=== PATIENT | male | born 1960 | race African-American/Black ===

== ENCOUNTER 2018-04-07 19:16 | Observation (INO) | payer OTHER ==
--- NOTE | 2018-04-07 19:58 | PDOC ---
History of Present Illness - General History Source: Patient Exam Limitations: No Limitations - History of Present Illness Initial Comments: 04/07/18 20:11 The patient is a 57 year old male, with a significant past medical history of HTN (noncompliant with medication) and anemia, who presents to the emergency department with, s/p 2 episodes of syncope while standing with associated chest pain. The patient reports associated chest pain with his second episode of syncope. He reports associated shortness of breath associated with both episodes of syncope. As per patient, he has not been feeling well for the past 4 days. He reports consuming alcohol the past two days after a friend advised him to. He denies consuming alcohol today. The patient reports to be noncompliant with his HTN medication because he believes it makes him feel lightheaded. He denies any recent fevers, chills, or headache. He denies any recent nausea, vomit, diarrhea or constipation. He denies any recent dysuria, frequency, urgency or hematuria. Allergies: Morphine, Nitroglycerin, Tramadol, Social History: Nonsmoker. Denies recreational drug use. <Fili Cassidy - Last Filed: 04/07/18 20:30> - General History Source: Patient <Edison Belcher - Last Filed: 04/07/18 22:40> - General Chief Complaint: Chest Pain Stated Complaint: CHEST PAIN Time Seen by Provider: 04/07/18 19:48 Past History <Fili Cassidy - Last Filed: 04/07/18 20:30> - Past Medical History Anemia: Yes (2 TRANSFUSIONS) COPD: No HTN: Yes - Immunization History Immunization Up to Date: Yes - Suicide/Smoking/Psychosocial Hx Smoking Status: No Smoking History: Never smoked Have you smoked in the past 12 months: No Number of Cigarettes Smoked Daily: 0 Hx Alcohol Use: Yes Drug/Substance Use Hx: No Substance Use Type: Alcohol, Opiates, Prescribed Hx Substance Use Treatment: No <Edison Belcher - Last Filed: 04/07/18 22:40> - Past Medical History Allergies/Adverse Reactions: Allergies Allergy/AdvReac Type Severity Reaction Status Date / Time morphine Allergy Verified 04/07/18 19:21 nitroglycerin Allergy Verified 04/07/18 19:21 tramadol Allergy Verified 04/07/18 19:21 Home Medications: Ambulatory Orders Clonidine HCl 0 mg PO BID 03/05/16 Hydrochlorothiazide [Hctz -] 0 mg PO DAILY 03/05/16 Metoprolol Tartrate [Lopressor -] 50 mg PO BID 03/05/16 Oxymorphone HCl [Opana ER] 40 mg PO BID 03/05/16 oxyCODONE SR [Oxycontin] 15 mg PO TID 03/05/16 Review of Systems - Review of Systems Able to Perform ROS?: Yes Comments:: 04/07/18 20:11 CONSTITUTIONAL: Absent: fever, no chills, no fatigue EYES: Absent: visual changes ENT: Absent: ear pain, no sore throat CARDIOVASCULAR: Present: Chest Pain. Absent: no palpitations RESPIRATORY: Present: SOB Absent: cough GI: Absent: abdominal pain, no nausea, no vomiting, no constipation, no diarrhea GENITOURINARY: Absent: dysuria, no frequency, no hematuria MUSKULOSKELETAL: Absent: back pain, no arthralgia, no myalgia SKIN: Absent: rash NEURO: Present: 2 Episodes of Syncope. Absent: headache <Fili Cassidy - Last Filed: 04/07/18 20:30> *Physical Exam - Vital Signs Last Vital Signs Temp Pulse Resp BP Pulse Ox 98.1 F 92 H 22 138/87 99 04/07/18 19:17 04/07/18 19:17 04/07/18 19:17 04/07/18 19:17 04/07/18 19:17 - Physical Exam Comments: 04/07/18 20:11 GENERAL: Well-appearing, well-nourished. No apparent distress. HEENT: Normocephalic, atraumatic. PERRL, EOM intact. CARDIOVASCULAR: Normal S1, S2. Regular rate and rhythm. PULMONARY: Clear to auscultation bilaterally. ABDOMEN: Soft, non-distended, non-tender. +EXTREMITIES: +1 pitting edema of the lower extremities. Normal ROM in all four extremities. SKIN: Warm, dry. No rash NEUROLOGICAL: Alert, awake, appropriate. Cranial nerves 2-12 intact. No deficits to light touch and temperature in face, upper extremities and lower extremities. No motor deficits in the in face, upper extremities and lower extremities. No pronator drift. Normoreflexic in the upper and lower extremities. Normal speech. Toes are down-going bilaterally. <Fili Cassidy - Last Filed: 04/07/18 20:30> - Vital Signs Last Vital Signs Temp Pulse Resp BP Pulse Ox 98.1 F 92 H 22 138/87 99 04/07/18 19:17 04/07/18 19:17 04/07/18 19:17 04/07/18 19:17 04/07/18 19:17 <Edison Belcher - Last Filed: 04/07/18 22:40> Moderate Sedation - Procedure Monitoring Vital Signs: Vital Signs Temp Pulse Resp BP Pulse Ox 98.1 F 92 H 22 138/87 99 04/07/18 19:17 04/07/18 19:17 04/07/18 19:17 04/07/18 19:17 04/07/18 19:17 <Fili Cassidy - Last Filed: 04/07/18 20:30> - Procedure Monitoring Vital Signs: Vital Signs Temp Pulse Resp BP Pulse Ox 98.1 F 92 H 22 138/87 99 04/07/18 19:17 04/07/18 19:17 04/07/18 19:17 04/07/18 19:17 04/07/18 19:17 <Edison Belcher - Last Filed: 04/07/18 22:40> Heart Score/ECG Review - ECG Intrepretation Comment:: 04/07/18 20:12 EKG performed at: 07 Apr 2018 19:26:22 Vent Rate 90 bpm MD interval 136 ms QRS duration 98 ms QT/QTc 382/467 ms P-R-T axes 47 51 -6 <Fili Cassidy - Last Filed: 04/07/18 20:30> ED Treatment Course - LABORATORY CBC & Chemistry Diagram: 04/07/18 21:13 04/07/18 21:13 <Edison Belcher - Last Filed: 04/07/18 22:40> Medical Decision Making - Medical Decision Making 04/07/18 22:36 Dr. Belcher: The scribe's documentation has been prepared under my direction and personally reviewed by me in its entirery. I confirm that the note above accurately reflects all work, treatment, procedures, and medical decision making performed by me. Pt states feeling slightly better than before. troponin x 1 negative at this time. Pt recently returned from [place] and hasn't see a doctor in some time. Will admit Tele Obs <Edison Belcher - Last Filed: 04/07/18 22:40> *DC/Admit/Observation/Transfer - Attestations Scribe Attestion: 04/07/18 20:13 Documentation prepared by Fili Cassidy, acting as medical claims specialist for Edison Belcher DO. <Fili Cassidy - Last Filed: 04/07/18 20:30> - Discharge Dispostion Decision to Admit order: Yes <Edison Belcher - Last Filed: 04/07/18 22:40> Diagnosis at time of Disposition: Chest pain, Alcohol intoxication - Discharge Dispostion Condition at time of disposition: Stable
[2018-04-07 21:51] LABS: URINE APPEARANCE SLCLOUDY; URINE BILIRUBIN NEGATIVE (<2.0 mg/dL); URINE COLOR LTYELLOW; URINE GLUCOSE (UA) 1+ (NEGATIVE); URINE KETONE NEGATIVE (NEGATIVE); URINE LEUK ESTERASE NEGATIVE (NEGATIVE); URINE NITRITE NEGATIVE (NEGATIVE); URINE UROBILINOGEN NEGATIVE mg/dL (0.2-1.0)
[2018-04-07 21:52] LABS: URINE PROTEIN 2+ (NEGATIVE)
[2018-04-07 21:53] LABS: BASO % 1.1 % (0-2.0); EOS % 1.4 % (0-4.5); HEMATOCRIT 44.2 % (35.4-49); HEMOGLOBIN 14.7 GM/dL (11.7-16.9); LYMPH % 43.6 % (8-40); MCH 27.6 pg (25.7-33.7); MCHC 33.2 g/dl (32.0-35.9); MEAN CELL VOLUME 83.2 fl (80-96); MONO % 7.8 % (3.8-10.2); NEUT % 46.1 % (42.8-82.8); PLATELET COUNT 221 K/MM3 (134-434); RBC 5.31 M/mm3 (4.00-5.60); RDW 13.9 % (11.9-15.9)
[2018-04-07 21:55] LABS: URINE MUCUS RARE
[2018-04-07 22:06] LABS: INR 0.91 (0.82-1.09); PROTHROMBIN TIME (PATIENT) 10.3 SEC (9.7-13.0)
[2018-04-07 22:10] LABS: ALBUMIN 3.6 g/dl (3.4-5.0); ANION GAP 9 (8-16); BILIRUBIN,TOTAL 0.2 mg/dL (0.2-1.0); BLOOD UREA NITROGEN 16 mg/dL (7-18); CALCIUM 8.1 mg/dL (8.5-10.1); CHLORIDE 114 mmol/L (98-107); CO2 26 mmol/L (21-32); CREATININE 1.7 mg/dL (0.7-1.3); GLUCOSE,RANDOM 92 mg/dL (74-106); MAGNESIUM 2.2 mg/dL (1.8-2.4); POTASSIUM 3.9 mmol/L (3.5-5.1); SGOT/AST 67 U/L (15-37); SODIUM 149 mmol/L (136-145); TOT PROT 7.8 g/dl (6.4-8.2)
[2018-04-07 22:23] LABS: ALK PHOS 92 U/L (45-117); SGPT/ALT 47 U/L (12-78)
[2018-04-07] MEDS ORDERED: ASPIRIN 81 MG CHEWABLE TABLETS PO ONE (22:40)
[2018-04-07] MEDS ORDERED: SODIUM CHLORIDE 1,000 ML IV SCH (23:15)
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
[2018-04-07] MEDS ORDERED: ASPIRIN 81 MG CHEWABLE TABLETS ONE (23:18)
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
[2018-04-07] MEDS: METOPROLOL TARTRATE 50 MG TABLET (FP) PO SCH (23:22)
[2018-04-07] MEDS ORDERED: METOPROLOL TARTRATE 50 MG TABLET (FP) ONE (23:27)
[2018-04-08] MEDS ORDERED: LORazepam 1 MG TABLET PO PRN ×2 (00:54→08:23)
--- NOTE | 2018-04-08 07:40 | PN ---
Physical Exam: SUBJECTIVE: Patient seen and examined. Pt came in with repeated syncopal episodes following chest pain. Had similar symptoms and was investigated in the past here. OBJECTIVE: Vital Signs Period Temp Pulse Resp BP Sys/Infante Pulse Ox Last 24 Hr 98.1 F 92 22 138/87 99 Vital Signs Temp 98.2 F 04/08/18 11:09 Pulse 62 04/08/18 11:09 Resp 18 04/08/18 11:09 BP 196/119 04/08/18 11:09 Pulse Ox 98 04/08/18 11:09 GENERAL: The patient is awake, alert, and fully oriented, in no acute distress. Absent tremors NECK: full range of motion, supple, no JVD. LUNGS: Breath sounds equal, clear to auscultation bilaterally, no wheezes HEART: Regular rate and rhythm, S1, S2 without murmur, rub or gallop. ABDOMEN: Soft, nontender, nondistended, normoactive bowel sounds EXTREMITIES: Multiple scars >> LLE , no edema. NEUROLOGICAL: Cranial nerves II through XII grossly intact. No facial droop, Muscle strength 5/5 both UE. Normal speech, gait not observed. CBC, BMP 04/08/18 08:12 04/08/18 08:12 Abnormal Lab Results 04/07/18 04/07/18 04/07/18 21:13 21:13 21:13 Lymphocytes % 43.6 H D Sodium 149 H Chloride 114 H Creatinine 1.7 H D Calcium 8.1 L AST 67 H Creatine Kinase 1039 H CK-MB (CK-2) 11.934 H B-Natriuretic Peptide 152.00 H Urine Protein 2+ H Urine Glucose (UA) 1+ H Urine Blood 1+ H Alcohol, Quantitative 04/07/18 04/08/18 21:13 08:12 Lymphocytes % Sodium 146 H Chloride 112 H Creatinine Calcium 8.1 L AST Creatine Kinase CK-MB (CK-2) B-Natriuretic Peptide Urine Protein Urine Glucose (UA) Urine Blood Alcohol, Quantitative 203.71 H* Laboratory Results - last 24 hr 04/07/18 04/07/18 04/07/18 21:13 21:13 21:13 WBC 6.0 D RBC 5.31 Hgb 14.7 Hct 44.2 MCV 83.2 MCH 27.6 MCHC 33.2 RDW 13.9 Plt Count 221 D MPV 11.0 D Neutrophils % 46.1 D Lymphocytes % 43.6 H D Monocytes % 7.8 Eosinophils % 1.4 D Basophils % 1.1 Nucleated RBC % 0 PT with INR 10.30 INR 0.91 Sodium Potassium Chloride Carbon Dioxide Anion Gap BUN Creatinine Creat Clearance w eGFR Random Glucose Calcium Magnesium Total Bilirubin AST ALT Alkaline Phosphatase Creatine Kinase Creatine Kinase Index CK-MB (CK-2) Troponin I B-Natriuretic Peptide Total Protein Albumin Urine Color Ltyellow Urine Appearance Slcloudy Urine pH 5.0 Ur Specific [place] 1.018 Urine Protein 2+ H Urine Glucose (UA) 1+ H Urine Ketones Negative Urine Blood 1+ H Urine Nitrite Negative Urine Bilirubin Negative Urine Urobilinogen Negative Ur Leukocyte Esterase Negative Urine WBC (Auto) <1 Urine RBC (Auto) <1 Urine Mucus Rare Alcohol, Quantitative Blood Type Antibody Screen 04/07/18 04/07/18 04/07/18 21:13 21:13 21:13 WBC RBC Hgb Hct MCV MCH MCHC RDW Plt Count MPV Neutrophils % Lymphocytes % Monocytes % Eosinophils % Basophils % Nucleated RBC % PT with INR INR Sodium 149 H Potassium 3.9 Chloride 114 H Carbon Dioxide 26 Anion Gap 9 BUN 16 Creatinine 1.7 H D Creat Clearance w eGFR 41.90 Random Glucose 92 Calcium 8.1 L Magnesium 2.2 Total Bilirubin 0.2 D AST 67 H ALT 47 Alkaline Phosphatase 92 Creatine Kinase 1039 H Creatine Kinase Index 1.1 CK-MB (CK-2) 11.934 H Troponin I < 0.02 B-Natriuretic Peptide 152.00 H Total Protein 7.8 Albumin 3.6 Urine Color Urine Appearance Urine pH Ur Specific [place] Urine Protein Urine Glucose (UA) Urine Ketones Urine Blood Urine Nitrite Urine Bilirubin Urine Urobilinogen Ur Leukocyte Esterase Urine WBC (Auto) Urine RBC (Auto) Urine Mucus Alcohol, Quantitative 203.71 H* Blood Type A NEGATIVE Antibody Screen Negative Active Medications Generic Name Dose Route Start Last Admin Trade Name Freq PRN Reason Stop Dose Admin Clonidine 0.1 mg 04/08/18 10:00 Catapres - PO BID ESTHER Sodium Chloride 1,000 mls @ 100 mls/hr 04/07/18 23:15 04/07/18 23:22 Normal Saline - IV 100 mls/hr ASDIR ESTHER Administration Lorazepam 2 mg 04/08/18 00:54 Ativan - PO Q8H PRN AGITATION/ANXIETY Metoprolol Tartrate 50 mg 04/07/18 23:30 04/07/18 23:22 Lopressor - PO 50 mg BID ESTHER Administration Oxycodone HCl 10 mg 04/07/18 23:45 Oxycontin - PO TID ESTHER Ambulatory Orders Clonidine HCl 0.2 mg PO BID 03/05/16 Metoprolol Tartrate [Lopressor -] 25 mg PO BID 03/05/16 oxyCODONE SR [Oxycontin] 10 mg PO TID 03/05/16 HYDROmorphone [Dilaudid -] 8 mg PO DAILY 04/08/18 Ondansetron HCl [Zofran] 4 mg PO DAILY 04/08/18 ECHO 04/08/18: Normal LVEF, moderate concentric LVH. E/A reversal consistent but not diagnostic of poor LV compliance. LV wall motion normal. Trace MR, Mild CA, Mild TR,RV systolic pressure 40-50 ASSESSMENT/PLAN: 57 year old male with a hx of HTN and anemia presents for multiple episodes of syncope and chest pain #Syncopal Episodes: patient reports 8 within the last 2 weeks -ASA given in ED -EKG Sinus rhythm with PVCs, prolonged QTc 467 -Consult Dr. Louis appreciated -echocardiogram- see above - carotid doppler- -ve -continue ASA 81mg -orthostatic vital signs #Chest pain: r/o ACS -repeat trops -repeat EKG- PVCs -Elevated creatinine kinase -likely dehydration related #Chronic pain -Pt on chronic opioids -Confirmed he follows a pain mx clinic in [facility] -Has one month supply of dilaudid 8mg ER (filled 03/27/18) -Also on oxycodone 10mg Q8H -Will resume oxycodone for now and monitor -Pt is on Ativan PRN #Hypernatremia: likely dehydration related -IV NS @ 100cc/hr -recheck BMP in AM #PAULO: new in onset, creatinine 1.7, possibly prerenal in origin -urine lytes (creatinine and sodium) -calculate FENa -IV NS @ 100cc/hr #Alcohol Use: -patient says last drink was after the syncope yesterday -Blood alcohol level above 200 -ativan PRN for withdrawal symptoms #FEN -IV NS @ 100cc/hr -replete lytes as necessary in AM -sodium controlled diet #Prophylaxis -heparin prophylaxis #Disposition -admit obs tele Visit type - Emergency Visit Emergency Visit: Yes ED Registration Date: 04/07/18 Care time: The patient presented to the Emergency Department on the above date and was hospitalized for further evaluation of their emergent condition. - New Patient This patient is new to me today: Yes Date on this admission: 04/08/18 - Critical Care Critical Care patient: No - Discharge Referral Referred to [facility] No
[2018-04-08] MEDS ORDERED: SODIUM CHLORIDE 0.45% 1,000 ML IV SCH (08:30)
[2018-04-08 08:42] LABS: HEMATOCRIT 43.9 % (35.4-49); HEMOGLOBIN 14.4 GM/dL (11.7-16.9); MCH 27.4 pg (25.7-33.7); MCHC 32.8 g/dl (32.0-35.9); MEAN CELL VOLUME 83.4 fl (80-96); MEAN PLT VOLUME 10.1 fl (7.5-11.1); PLATELET COUNT 192 K/MM3 (134-434); RBC 5.27 M/mm3 (4.00-5.60); RDW 13.8 % (11.9-15.9); WHITE BLOOD COUNT 5.1 K/mm3 (4.0-10.0)
[2018-04-08] MEDS ORDERED: FOLIC ACID INJECTION - 1 MG, THIAMINE HCL 100 MG, MULTIVIT INJECTION ADULT 10 ML in SOD... IVPB ONE (09:00)
[2018-04-08 09:08] LABS: CHLORIDE 112 mmol/L (98-107); POTASSIUM 3.8 mmol/L (3.5-5.1); SODIUM 146 mmol/L (136-145)
[2018-04-08 09:15] LABS: ANION GAP 9 (8-16); BLOOD UREA NITROGEN 16 mg/dL (7-18); CALCIUM 8.1 mg/dL (8.5-10.1); CO2 25 mmol/L (21-32); CREATININE 1.3 mg/dL (0.7-1.3); GLUCOSE,RANDOM 96 mg/dL (74-106); PHOSPHOROUS 2.9 mg/dL (2.5-4.9)
--- NOTE | 2018-04-08 10:27 | EKG ---
Test Reason : Blood Pressure : / mmHG Vent. Rate : 090 BPM Atrial Rate : 090 BPM P-R Int : 136 ms QRS Dur : 098 ms QT Int : 382 ms P-R-T Axes : 047 051 -06 degrees QTc Int : 467 ms SINUS RHYTHM WITH FREQUENT PREMATURE VENTRICULAR COMPLEXES MINIMAL VOLTAGE CRITERIA FOR LVH, MAY BE NORMAL VARIANT NONSPECIFIC T WAVE ABNORMALITY PROLONGED QT ABNORMAL ECG WHEN COMPARED WITH ECG OF 05-MAR-2016 15:52, NO SIGNIFICANT CHANGE WAS FOUND Confirmed by ADELA MEREDITH MD ([id number]) on 04/08/2018 10:27:08 AM Referred By: Confirmed By:ADELA MEREDITH MD
--- NOTE | 2018-04-08 10:28 | EKG ---
Test Reason : Blood Pressure : / mmHG Vent. Rate : 080 BPM Atrial Rate : 080 BPM P-R Int : 146 ms QRS Dur : 106 ms QT Int : 378 ms P-R-T Axes : 040 033 -23 degrees QTc Int : 435 ms SINUS RHYTHM WITH FREQUENT PREMATURE VENTRICULAR COMPLEXES NONSPECIFIC ST AND T WAVE ABNORMALITY ABNORMAL ECG NO PREVIOUS ECGS AVAILABLE Confirmed by ADELA MEREDITH MD ([id number]) on 04/08/2018 10:27:39 AM Referred By: Confirmed By:ADELA MEREDITH MD
[2018-04-08] MEDS ORDERED: SODIUM CHLORIDE 1,000 ML IV SCH ×2 (10:45→19:00)
[2018-04-08] MEDS: cloNIDine HCL 0.1 MG TABLET PO SCH ×2 (10:55→21:59)
[2018-04-08] MEDS: oxyCODONE HCL 10 MG SUSTAINED ACTING TABLET PO SCH ×2 (10:56→11:58)
--- NOTE | 2018-04-08 11:40 | CON.CARD ---
Consult Consult Specialty:: Cardiology Reason for Consultation:: syncope - History of Present Illness Chief Complaint: syncope History of Present Illness: The patient is a 57 year old male, with a significant past medical history of HTN (noncompliant with medication) and anemia, who presents to the emergency department with, s/p 2 episodes of syncope while standing with associated chest pain. The patient reports associated chest pain with his second episode of syncope. He reports associated shortness of breath associated with both episodes of syncope. As per patient, he has not been feeling well for the past 4 days. He reports consuming alcohol the past two days after a friend advised him to. He denies consuming alcohol today. The patient reports to be noncompliant with his HTN medication because he believes it makes him feel lightheaded. He denies any recent fevers, chills, or headache. He denies any recent nausea, vomit, diarrhea or constipation. He denies any recent dysuria, frequency, urgency or hematuria. - History Source History Provided By: Patient, Medical Record - Past Medical History Cardio/Vascular: Yes: HTN - Alcohol/Substance Use Hx Alcohol Use: Yes - Smoking History Smoking history: Never smoked Have you smoked in the past 12 months: No Aproximately how many cigarettes per day: 0 - Social History History of Recent Travel: Yes ([place] driving) Home Medications - Allergies Allergies/Adverse Reactions: Allergies Allergy/AdvReac Type Severity Reaction Status Date / Time morphine Allergy Verified 04/07/18 19:21 nitroglycerin Allergy Verified 04/07/18 19:21 tramadol Allergy Verified 04/07/18 19:21 - Home Medications Home Medications: Ambulatory Orders Clonidine HCl 0 mg PO BID 03/05/16 Hydrochlorothiazide [Hctz -] 0 mg PO DAILY 03/05/16 Metoprolol Tartrate [Lopressor -] 50 mg PO BID 03/05/16 Oxymorphone HCl [Opana ER] 40 mg PO BID 03/05/16 oxyCODONE SR [Oxycontin] 15 mg PO TID 03/05/16 Review of Systems - Review of Systems Constitutional: reports: No Symptoms Eyes: reports: No Symptoms HENT: reports: No Symptoms Neck: reports: No Symptoms Cardiovascular: reports: Chest Pain Gastrointestinal: reports: No Symptoms Genitourinary: reports: No Symptoms Breasts: reports: No Symptoms Reported Musculoskeletal: reports: No Symptoms Integumentary: reports: No Symptoms Neurological: reports: Syncope Endocrine: reports: No Symptoms Hematology/Lymphatic: reports: No Symptoms Psychiatric: reports: No Symptoms Vital Signs: Vital Signs Temperature 98.2 F 04/08/18 11:09 Pulse Rate 62 04/08/18 11:09 Respiratory Rate 18 04/08/18 11:09 Blood Pressure 196/119 04/08/18 11:09 O2 Sat by Pulse Oximetry (%) 98 04/08/18 11:09 Constitutional: Yes: Well Nourished, No Distress, Calm Eyes: Yes: WNL, Conjunctiva Clear, EOM Intact HENT: Yes: WNL, Atraumatic, Normocephalic Neck: Yes: WNL, Supple, Trachea Midline Respiratory: Yes: WNL, Regular, CTA Bilaterally Gastrointestinal: Yes: WNL, Normal Bowel Sounds Renal/: Yes: WNL Cardiovascular: Yes: WNL, Regular Rate and Rhythm Musculoskeletal: Yes: WNL Extremities: Yes: WNL Integumentary: Yes: WNL Neurological: Yes: WNL, Alert, Oriented ...Motor Strength: WNL Psychiatric: Yes: WNL, Alert, Oriented - Other Data Labs, Other Data: CBC, BMP 04/08/18 08:12 04/08/18 08:12 INR, PTT INR 0.91 (0.82-1.09) 04/07/18 21:13 Troponin, BNP 04/07/18 04/08/18 21:13 08:12 Troponin I < 0.02 < 0.02 B-Natriuretic Peptide 152.00 H Troponin, BNP 04/07/18 04/08/18 21:13 08:12 Troponin I < 0.02 < 0.02 B-Natriuretic Peptide 152.00 H Laboratory Tests 04/07/18 04/07/18 04/07/18 21:13 21:13 21:13 WBC 6.0 D RBC 5.31 Hgb 14.7 Hct 44.2 MCV 83.2 MCH 27.6 MCHC 33.2 RDW 13.9 Plt Count 221 D MPV 11.0 D Neutrophils % 46.1 D Lymphocytes % 43.6 H D Monocytes % 7.8 Eosinophils % 1.4 D Basophils % 1.1 Nucleated RBC % 0 PT with INR 10.30 INR 0.91 Sodium Potassium Chloride Carbon Dioxide Anion Gap BUN Creatinine Creat Clearance w eGFR Random Glucose Calcium Phosphorus Magnesium Total Bilirubin AST ALT Alkaline Phosphatase Creatine Kinase Creatine Kinase Index CK-MB (CK-2) Troponin I B-Natriuretic Peptide Total Protein Albumin Urine Color Ltyellow Urine Appearance Slcloudy Urine pH 5.0 Ur Specific [place] 1.018 Urine Protein 2+ H Urine Glucose (UA) 1+ H Urine Ketones Negative Urine Blood 1+ H Urine Nitrite Negative Urine Bilirubin Negative Urine Urobilinogen Negative Ur Leukocyte Esterase Negative Urine WBC (Auto) <1 Urine RBC (Auto) <1 Urine Mucus Rare Alcohol, Quantitative Blood Type Antibody Screen 04/07/18 04/07/18 04/07/18 21:13 21:13 21:13 WBC RBC Hgb Hct MCV MCH MCHC RDW Plt Count MPV Neutrophils % Lymphocytes % Monocytes % Eosinophils % Basophils % Nucleated RBC % PT with INR INR Sodium 149 H Potassium 3.9 Chloride 114 H Carbon Dioxide 26 Anion Gap 9 BUN 16 Creatinine 1.7 H D Creat Clearance w eGFR 41.90 Random Glucose 92 Calcium 8.1 L Phosphorus Magnesium 2.2 Total Bilirubin 0.2 D AST 67 H ALT 47 Alkaline Phosphatase 92 Creatine Kinase 1039 H Creatine Kinase Index 1.1 CK-MB (CK-2) 11.934 H Troponin I < 0.02 B-Natriuretic Peptide 152.00 H Total Protein 7.8 Albumin 3.6 Urine Color Urine Appearance Urine pH Ur Specific [place] Urine Protein Urine Glucose (UA) Urine Ketones Urine Blood Urine Nitrite Urine Bilirubin Urine Urobilinogen Ur Leukocyte Esterase Urine WBC (Auto) Urine RBC (Auto) Urine Mucus Alcohol, Quantitative 203.71 H* Blood Type A NEGATIVE Antibody Screen Negative 04/08/18 04/08/18 04/08/18 08:12 08:12 08:12 WBC 5.1 RBC 5.27 Hgb 14.4 Hct 43.9 MCV 83.4 MCH 27.4 MCHC 32.8 RDW 13.8 Plt Count 192 MPV 10.1 Neutrophils % Lymphocytes % Monocytes % Eosinophils % Basophils % Nucleated RBC % PT with INR INR Sodium 146 H Potassium 3.8 Chloride 112 H Carbon Dioxide 25 Anion Gap 9 BUN 16 Creatinine 1.3 D Creat Clearance w eGFR Random Glucose 96 Calcium 8.1 L Phosphorus 2.9 D Magnesium 2.0 Total Bilirubin AST ALT Alkaline Phosphatase Creatine Kinase Creatine Kinase Index CK-MB (CK-2) Troponin I < 0.02 B-Natriuretic Peptide Total Protein Albumin Urine Color Urine Appearance Urine pH Ur Specific [place] Urine Protein Urine Glucose (UA) Urine Ketones Urine Blood Urine Nitrite Urine Bilirubin Urine Urobilinogen Ur Leukocyte Esterase Urine WBC (Auto) Urine RBC (Auto) Urine Mucus Alcohol, Quantitative Blood Type Antibody Screen Imaging - Results Chest X-ray: Image Reviewed (no i/e) Ultrasound: Report Reviewed (normal carotid us) EKG: Image Reviewed (sr vpcs repolarization abnormalities) Problem List - Problems (1) Alcohol intoxication Code(s): F10.929 - ALCOHOL USE, UNSPECIFIED WITH INTOXICATION, UNSPECIFIED (2) Chest pain Code(s): R07.9 - CHEST PAIN, UNSPECIFIED (3) Hypertension Code(s): I10 - ESSENTIAL (PRIMARY) HYPERTENSION Qualifiers: Hypertension type: essential hypertension Qualified Code(s): I10 - Essential (primary) hypertension Assessment/Plan syncope r/o mi htn etoh use noncompliance plan bp control amlodipine check lipids watch for DT echo telemetry mibi st when stable
[2018-04-08] MEDS: METOPROLOL TARTRATE 50 MG TABLET (FP) PO SCH ×2 (11:43→21:59)
[2018-04-08] MEDS: THIAMINE HCL 100 MG TABLET (FP) PO SCH ×2 (11:43→23:16)
[2018-04-08] MEDS: FOLIC ACID 1 MG TABLET (FP) PO SCH (11:43)
[2018-04-08] MEDS ORDERED: amLODIPine BESYLATE 5 MG TABLET (FP) ONE (11:44)
[2018-04-08] MEDS: CYANOCOBALAMIN 1,000 MCG TABLET (FP) PO SCH (11:44)
[2018-04-08] MEDS: amLODIPine BESYLATE 5 MG TABLET (FP) PO SCH (11:45)
[2018-04-08] MEDS ORDERED: oxyCODONE HCL 5 MG TABLET PO PRN (17:40)
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
[2018-04-08] MEDS ORDERED: oxyCODONE HCL 5 MG TABLET ONE (18:53)
[2018-04-08] MEDS ORDERED: METOPROLOL TARTRATE 50 MG TABLET (FP) ONE (21:25)
[2018-04-08] MEDS ORDERED: cloNIDine HCL 0.1 MG TABLET ONE (21:25)
[2018-04-08] MEDS ORDERED: OXYMORPHONE HCL 40 MG PO SCH (22:00)
[2018-04-08 22:40] VITALS: BMI 34.9
[2018-04-09] MEDS: amLODIPine BESYLATE 5 MG TABLET (FP) PO SCH ×2 (05:56→14:13)
[2018-04-09 06:34] LABS: BASO % 1.1 % (0-2.0); EOS % 3.5 % (0-4.5); HEMATOCRIT 41.2 % (35.4-49); HEMOGLOBIN 13.7 GM/dL (11.7-16.9); LYMPH % 36.6 % (8-40); MCH 27.8 pg (25.7-33.7); MCHC 33.3 g/dl (32.0-35.9); MEAN CELL VOLUME 83.6 fl (80-96); MONO % 9.5 % (3.8-10.2); NEUT % 49.3 % (42.8-82.8); PLATELET COUNT 166 K/MM3 (134-434); RBC 4.93 M/mm3 (4.00-5.60); RDW 14.1 % (11.9-15.9)
[2018-04-09 07:04] LABS: CHLORIDE 110 mmol/L (98-107); POTASSIUM 3.6 mmol/L (3.5-5.1); SODIUM 143 mmol/L (136-145)
[2018-04-09 07:13] LABS: ALBUMIN 2.8 g/dl (3.4-5.0); ALK PHOS 67 U/L (45-117); ANION GAP 6 (8-16); BILIRUBIN,TOTAL 0.6 mg/dL (0.2-1.0); BLOOD UREA NITROGEN 17 mg/dL (7-18); CALCIUM 7.4 mg/dL (8.5-10.1); CO2 27 mmol/L (21-32); CREATININE 1.2 mg/dL (0.7-1.3); GLUCOSE,RANDOM 83 mg/dL (74-106); MAGNESIUM 1.8 mg/dL (1.8-2.4); PHOSPHOROUS 2.9 mg/dL (2.5-4.9); SGOT/AST 36 U/L (15-37); SGPT/ALT 34 U/L (12-78); TOT PROT 6.2 g/dl (6.4-8.2)
--- NOTE | 2018-04-09 07:51 | PN ---
Physical Exam: SUBJECTIVE: Patient seen and examined. Still having intermittent palpitations with SOB. Last episode about 2am. Had episodes of high blood pressure overnight. OBJECTIVE: Vital Signs Period Temp Pulse Resp BP Sys/[place] Pulse Ox Last 24 Hr 97.6 F-98.2 F 54-62 18-20 146-196/99-119 97-98 Vital Signs Temp 98.1 F 04/09/18 02:00 Pulse 54 L 04/09/18 02:00 Resp 20 04/09/18 02:00 BP 146/99 04/09/18 02:00 Pulse Ox 97 04/09/18 03:48 GENERAL: The patient is awake, alert, and fully oriented, in no acute distress. No tremors. LUNGS: Breath sounds equal, clear to auscultation bilaterally HEART: irregular rate and normal rhythm, S1, S2 without murmur, rub or gallop. ABDOMEN: Soft, nontender, nondistended, normoactive bowel sounds EXTREMITIES: 2+ pulses, warm, well-perfused, no edema. Multiple healed scars lower extremities NEUROLOGICAL: Cranial nerves II through XII grossly intact. Normal speech, gait not observed. PSYCH: Normal mood, normal affect. SKIN: Warm, dry, normal turgor, no rashes or lesions noted CBC, BMP 04/09/18 06:10 04/09/18 06:10 Laboratory Results - last 24 hr 04/08/18 04/08/18 04/08/18 08:12 08:12 08:12 WBC 5.1 RBC 5.27 Hgb 14.4 Hct 43.9 MCV 83.4 MCH 27.4 MCHC 32.8 RDW 13.8 Plt Count 192 MPV 10.1 Neutrophils % Lymphocytes % Monocytes % Eosinophils % Basophils % Nucleated RBC % Sodium 146 H Potassium 3.8 Chloride 112 H Carbon Dioxide 25 Anion Gap 9 BUN 16 Creatinine 1.3 D Creat Clearance w eGFR Random Glucose 96 Calcium 8.1 L Phosphorus 2.9 D Magnesium 2.0 Total Bilirubin AST ALT Alkaline Phosphatase Creatine Kinase Troponin I < 0.02 Total Protein Albumin Ur Random Sodium Urine Creatinine 04/08/18 04/08/18 04/09/18 21:37 21:37 06:10 WBC RBC Hgb Hct MCV MCH MCHC RDW Plt Count MPV Neutrophils % Lymphocytes % Monocytes % Eosinophils % Basophils % Nucleated RBC % Sodium 143 Potassium 3.6 Chloride 110 H Carbon Dioxide 27 Anion Gap 6 L BUN 17 Creatinine 1.2 Creat Clearance w eGFR > 60 Random Glucose 83 Calcium 7.4 L Phosphorus 2.9 Magnesium 1.8 Total Bilirubin 0.6 D AST 36 D ALT 34 D Alkaline Phosphatase 67 D Creatine Kinase 502 H Troponin I Total Protein 6.2 L D Albumin 2.8 L D Ur Random Sodium 142 Urine Creatinine 28.8 04/09/18 06:10 WBC 6.0 RBC 4.93 Hgb 13.7 Hct 41.2 MCV 83.6 MCH 27.8 MCHC 33.3 RDW 14.1 Plt Count 166 MPV 11.0 Neutrophils % 49.3 Lymphocytes % 36.6 Monocytes % 9.5 Eosinophils % 3.5 D Basophils % 1.1 Nucleated RBC % 0 Sodium Potassium Chloride Carbon Dioxide Anion Gap BUN Creatinine Creat Clearance w eGFR Random Glucose Calcium Phosphorus Magnesium Total Bilirubin AST ALT Alkaline Phosphatase Creatine Kinase Troponin I Total Protein Albumin Ur Random Sodium Urine Creatinine Active Medications Generic Name Dose Route Start Last Admin Trade Name Freq PRN Reason Stop Dose Admin Amlodipine Besylate 5 mg 04/08/18 11:45 04/09/18 05:56 Norvasc - PO 5 mg DAILY ESTHER Administration Clonidine 0.1 mg 04/08/18 10:00 04/08/18 21:59 Catapres - PO 0.1 mg BID ESTHER Administration Cyanocobalamin 1,000 mcg 04/08/18 10:00 04/08/18 11:44 Vitamin B12 - PO 1,000 mcg DAILY ESTHER Administration Folic Acid 1 mg 04/08/18 10:00 04/08/18 11:43 Folic Acid - PO 1 mg DAILY ESTHER Administration Lorazepam 1 mg 04/08/18 08:23 04/08/18 23:16 Ativan - PO 1 mg Q8H PRN Administration AGITATION/ANXIETY Metoprolol Tartrate 50 mg 04/07/18 23:30 04/08/18 21:59 Lopressor - PO 50 mg BID ESTHER Administration Oxycodone HCl 10 mg 04/08/18 17:40 04/08/18 19:01 Roxicodone - PO 10 mg Q6H PRN Administration PAIN LEVEL 4 - 6 Thiamine HCl 100 mg 04/08/18 10:00 04/08/18 23:16 Vitamin B1 - PO 100 mg BID ESTHER Administration Ambulatory Orders Clonidine HCl 0.2 mg PO BID 03/05/16 Metoprolol Tartrate [Lopressor -] 25 mg PO BID 03/05/16 oxyCODONE SR [Oxycontin] 10 mg PO TID 03/05/16 HYDROmorphone [Dilaudid -] 8 mg PO DAILY 04/08/18 Ondansetron HCl [Zofran] 4 mg PO DAILY 04/08/18 Current Medications Amlodipine Besylate (Norvasc -) 10 mg PO DAILY [facility] Clonidine (Catapres -) 0.1 mg PO BID [facility] Last Admin: 04/09/18 12:07 Dose: 0.1 mg Cyanocobalamin (Vitamin B12 -) 1,000 mcg PO DAILY [facility] Last Admin: 04/09/18 14:14 Dose: 1,000 mcg Folic Acid (Folic Acid -) 1 mg PO DAILY [facility] Last Admin: 04/09/18 14:13 Dose: 1 mg Heparin Sodium (Porcine) (Heparin -) 5,000 unit SQ TID [facility] Last Admin: 04/09/18 14:13 Dose: 5,000 unit Hydromorphone HCl (Dilaudid -) 4 mg PO BID [facility] Last Admin: 04/09/18 14:12 Dose: 4 mg Metoprolol Tartrate (Lopressor -) 50 mg PO BID [facility] Last Admin: 04/09/18 14:14 Dose: Not Given Oxycodone HCl (Roxicodone -) 10 mg PO Q8H PRN PRN Reason: PAIN LEVEL 4 - 6 Thiamine HCl (Vitamin B1 -) 100 mg PO BID [facility] Last Admin: 04/09/18 14:13 Dose: 100 mg carotid doppler- -ve -EKG Sinus rhythm with PVCs, prolonged QTc 467 ECHO 04/08/18: Normal LVEF, moderate concentric LVH. E/A reversal consistent but not diagnostic of poor LV compliance. LV wall motion normal. Trace MR, Mild ME, Mild TR,RV systolic pressure 40-50 Nuclear stress test (Lexiscan) 04/09/18:Normal lexiscan stress EKG, Normal myocardial perfusion. LV cavity is enlarged. LVEF 42%. ASSESSMENT/PLAN: 57 year old male with a hx of HTN and anemia presents for multiple episodes of syncope and chest pain #Syncopal Episodes: patient reports 8 within the last 2 weeks PVCs on tele Consult Dr. Louis appreciated Normal stress test with LVEF-42% #HTN On home 0.1mg clonidine bid On lopressor 50mg bid at home Cont amlodipine 10mg #Chest pain: r/o ACS -repeat EKG- PVCs -Elevated creatinine kinase, normal trops -IVF stopped, CK- decreasing, blood pressure elevated #Chronic pain -Pt on chronic opioids -Confirmed he follows a pain mx clinic in [facility] -Continue dilaudid 4mg bid (Has one month supply of dilaudid 8mg ER -filled in [place] on 03/27/18) -Continue oxycodone 10mg Q8H -Ativan PRN- stopped, no signs of withdrawal #Hypernatremia: likely dehydration related -IV NS @ 100cc/hr- stopped -recheck BMP in AM #PAULO: new in onset, creatinine 1.7 on admission improving Cr-1.2 following rehydration and improved CK #Alcohol Use: -patient says last drink was after the syncope yesterday -Blood alcohol level above 200 stop ativan PRN, no withdrawal symptoms #FEN -Oral fluids, limit salt ingestion -replete lytes as necessary in AM -sodium controlled diet #Prophylaxis -heparin prophylaxis #Dispo Continue on Tele Visit type - Emergency Visit Emergency Visit: Yes ED Registration Date: 04/07/18 Care time: The patient presented to the Emergency Department on the above date and was hospitalized for further evaluation of their emergent condition. - New Patient This patient is new to me today: No - Critical Care Critical Care patient: No - Discharge Referral Referred to [facility] Med P.C.: No
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
[2018-04-09 09:30] LABS: CHOLESTEROL 152 mg/dL (50-200); HDL CHOLESTEROL 63 mg/dL (40-60); TRIGLYCERIDES 84 mg/dL (35-160)
[2018-04-09] MEDS ORDERED: REGADENOSON 0.4 MG/5 ML PRE-FILLED SYRINGE IVPUSH ONE ×2 (09:45→13:02)
[2018-04-09] MEDS ORDERED: oxyCODONE HCL 5 MG TABLET PO PRN (10:55)
[2018-04-09] MEDS ORDERED: cloNIDine HCL 0.1 MG TABLET ONE (12:03)
[2018-04-09] MEDS ORDERED: METOPROLOL TARTRATE 50 MG TABLET (FP) ONE (12:04)
[2018-04-09] MEDS: cloNIDine HCL 0.1 MG TABLET PO SCH ×2 (12:07→21:02)
--- NOTE | 2018-04-09 13:46 | PN ---
Progress Note, Physician Chief Complaint: Pt A&Ox3; ambulatory; just returned from stress MIBI.No chest pain, dizziness, or dyspnea. History of Present Illness: The patient is a 57 year old male, with a significant past medical history of HTN (noncompliant with medication) and anemia, who presents to the emergency department with, s/p 2 episodes of syncope while standing with associated chest pain. The patient reports associated chest pain with his second episode of syncope. He reports associated shortness of breath associated with both episodes of syncope. As per patient, he has not been feeling well for the past 4 days. He reports consuming alcohol the past two days after a friend advised him to. He denies consuming alcohol today. The patient reports to be noncompliant with his HTN medication because he believes it makes him feel lightheaded. - Current Medication List Current Medications: Active Medications Amlodipine Besylate (Norvasc -) 5 mg PO DAILY [facility] Last Admin: 04/09/18 05:56 Dose: 5 mg Clonidine (Catapres -) 0.1 mg PO BID [facility] Last Admin: 04/09/18 12:07 Dose: 0.1 mg Cyanocobalamin (Vitamin B12 -) 1,000 mcg PO DAILY [facility] Last Admin: 04/08/18 11:44 Dose: 1,000 mcg Folic Acid (Folic Acid -) 1 mg PO DAILY [facility] Last Admin: 04/08/18 11:43 Dose: 1 mg Heparin Sodium (Porcine) (Heparin -) 5,000 unit SQ TID [facility] Hydromorphone HCl (Dilaudid -) 4 mg PO BID [facility] Metoprolol Tartrate (Lopressor -) 50 mg PO BID [facility] Last Admin: 04/08/18 21:59 Dose: 50 mg Oxycodone HCl (Roxicodone -) 10 mg PO Q8H PRN PRN Reason: PAIN LEVEL 4 - 6 Thiamine HCl (Vitamin B1 -) 100 mg PO BID [facility] Last Admin: 04/08/18 23:16 Dose: 100 mg - Objective Vital Signs: Vital Signs Temperature 98.1 F 04/09/18 07:54 Pulse Rate 67 04/09/18 07:54 Respiratory Rate 20 04/09/18 07:57 Blood Pressure 160/108 04/09/18 13:43 O2 Sat by Pulse Oximetry (%) 97 04/09/18 07:57 Labs: CBC, BMP 04/09/18 06:10 04/09/18 06:10 INR, PTT INR 0.91 (0.82-1.09) 04/07/18 21:13 Problem List - Problems (1) Alcohol intoxication Code(s): F10.929 - ALCOHOL USE, UNSPECIFIED WITH INTOXICATION, UNSPECIFIED (2) Chest pain Assessment/Plan: Multiple CAD risks. Stress MIBI results pending. Code(s): R07.9 - CHEST PAIN, UNSPECIFIED (3) Hypertension Assessment/Plan: On multiple antihypertensives: Prolematic using both clonidine and beta blockers. Pt claims compliance with bid s=dosing; the dangers of not taking clonidine continuously were discussed. Code(s): I10 - ESSENTIAL (PRIMARY) HYPERTENSION Qualifiers: Hypertension type: essential hypertension Qualified Code(s): I10 - Essential (primary) hypertension
[2018-04-09] MEDS: HEPARIN NA (PORCINE) 5,000 UNITS/ML 1ML VIAL SQ SCH ×2 (14:13→21:03)
[2018-04-09] MEDS: THIAMINE HCL 100 MG TABLET (FP) PO SCH ×2 (14:13→21:03)
[2018-04-09] MEDS: FOLIC ACID 1 MG TABLET (FP) PO SCH (14:13)
[2018-04-09] MEDS: METOPROLOL TARTRATE 50 MG TABLET (FP) PO SCH ×2 (14:14→21:02)
[2018-04-09] MEDS: CYANOCOBALAMIN 1,000 MCG TABLET (FP) PO SCH (14:14)
[2018-04-09] MEDS ORDERED: amLODIPine BESYLATE 5 MG TABLET (FP) PO ONE (15:15)
--- NOTE | 2018-04-09 16:30 | EKG ---
Test Reason : Blood Pressure : / mmHG Vent. Rate : 049 BPM Atrial Rate : 049 BPM P-R Int : 144 ms QRS Dur : 108 ms QT Int : 504 ms P-R-T Axes : 035 024 018 degrees QTc Int : 455 ms SINUS BRADYCARDIA NONSPECIFIC ST AND T WAVE ABNORMALITY ABNORMAL ECG WHEN COMPARED WITH ECG OF 08-APR-2018 03:55, PREMATURE VENTRICULAR COMPLEXES ARE NO LONGER PRESENT VENT. RATE HAS DECREASED BY 31 BPM Confirmed by DANIELLE CHEUNG MD ([id number]) on 04/09/2018 4:30:21 PM Referred By: JOHN THOMPSON DR Confirmed By:DANIELLE CHEUNG MD
[2018-04-09 21:50] LABS: COCAINE, UR NEGATIVE ng/ml (CUTOFF=300); METHADONE, UR NEGATIVE ng/ml (CUTOFF=300); PHENCYCLIDINE,URINE NEGATIVE ng/ml (CUTOFF=25); URINE AMPHETAMINES NEGATIVE ng/ml (CUTOFF=500); URINE BARBITURATES NEGATIVE ng/ml (CUTOFF=200); URINE BENZODIAZEPINES NEGATIVE ng/ml (CUTOFF=200)
[2018-04-09 21:51] LABS: OPIATES, URI POSITIVE ng/ml (CUTOFF=300)
[2018-04-10] MEDS: HEPARIN NA (PORCINE) 5,000 UNITS/ML 1ML VIAL SQ SCH ×2 (06:32→14:01)
--- NOTE | 2018-04-10 07:27 | PN ---
Physical Exam: SUBJECTIVE: Patient seen and examined OBJECTIVE: Vital Signs Period Temp Pulse Resp BP Sys/Infante Pulse Ox Last 24 Hr 98 F-98.1 F 52-67 20-20 138-181/88-115 97-99 Vital Signs Temp 98 F 04/10/18 02:00 Pulse 52 L 04/10/18 07:00 Resp 20 04/10/18 07:00 BP 152/99 04/10/18 07:00 Pulse Ox 99 04/09/18 21:00 Intake & Output 04/09/18 04/09/18 04/10/18 11:59 23:59 11:59 Intake Total 300 500 Balance 300 500 Intake: IV 300 500 Normal Saline - 1,000 ml 300 500 @ 100 mls/hr IV ASDIR ESTHER Rx#:[id number] IVPB 0 Other: Voiding Method Toilet Toilet Toilet # Unmeasured Voids Void 2 GENERAL: The patient is awake, alert, and fully oriented, in no acute distress. HEAD: Normal with no signs of trauma. EYES: PERRL, extraocular movements intact, sclera anicteric, conjunctiva clear. No ptosis. ENT: Ears normal, nares patent, oropharynx clear without exudates, moist mucous membranes. NECK: Trachea midline, full range of motion, supple. LUNGS: Breath sounds equal, clear to auscultation bilaterally, no wheezes, no crackles, no accessory muscle use. HEART: Regular rate and rhythm, S1, S2 without murmur, rub or gallop. ABDOMEN: Soft, nontender, nondistended, normoactive bowel sounds, no guarding, no rebound, no hepatosplenomegaly, no masses. EXTREMITIES: 2+ pulses, warm, well-perfused, no edema. NEUROLOGICAL: Cranial nerves II through XII grossly intact. Normal speech, gait not observed. PSYCH: Normal mood, normal affect. SKIN: Warm, dry, normal turgor, no rashes or lesions noted Laboratory Results - last 24 hr 04/09/18 04/09/18 04/09/18 06:10 06:10 20:30 Sodium 143 Potassium 3.6 Chloride 110 H Carbon Dioxide 27 Anion Gap 6 L BUN 17 Creatinine 1.2 Creat Clearance w eGFR > 60 Random Glucose 83 Calcium 7.4 L Phosphorus 2.9 Magnesium 1.8 Total Bilirubin 0.6 D AST 36 D ALT 34 D Alkaline Phosphatase 67 D Creatine Kinase 502 H Creatine Kinase Index 0.9 CK-MB (CK-2) 4.852 H Total Protein 6.2 L D Albumin 2.8 L D Triglycerides Cancelled 84 Cholesterol Cancelled 152 Total LDL Cholesterol Cancelled 85 HDL Cholesterol Cancelled 63 H Opiates Screen Positive Methadone Screen Negative Barbiturate Screen Negative Phencyclidine Screen Negative Ur Amphetamines Screen Negative MDMA (Ecstasy) Screen Negative Benzodiazepines Screen Negative Cocaine Screen Negative U Marijuana (THC) Screen Negative Active Medications Generic Name Dose Route Start Last Admin Trade Name Freq PRN Reason Stop Dose Admin Amlodipine Besylate 10 mg 04/10/18 10:00 Norvasc - PO DAILY ESTHER Clonidine 0.1 mg 04/08/18 10:00 04/09/18 21:02 Catapres - PO 0.1 mg BID ESTHER Administration Cyanocobalamin 1,000 mcg 04/08/18 10:00 04/09/18 14:14 Vitamin B12 - PO 1,000 mcg DAILY ESTHER Administration Folic Acid 1 mg 04/08/18 10:00 04/09/18 14:13 Folic Acid - PO 1 mg DAILY ESTHER Administration Heparin Sodium (Porcine) 5,000 unit 04/09/18 14:00 04/10/18 06:32 Heparin - SQ 5,000 unit TID ESTHER Administration Hydromorphone HCl 4 mg 04/09/18 10:56 04/09/18 21:02 Dilaudid - PO 4 mg BID ESTHER Administration Metoprolol Tartrate 50 mg 04/07/18 23:30 04/09/18 21:02 Lopressor - PO 50 mg BID ESTHER Administration Oxycodone HCl 10 mg 04/09/18 10:55 04/10/18 02:15 Roxicodone - PO 10 mg Q8H PRN Administration PAIN LEVEL 4 - 6 Thiamine HCl 100 mg 04/08/18 10:00 04/09/18 21:03 Vitamin B1 - PO 100 mg BID ESTHER Administration ASSESSMENT/PLAN:
[2018-04-10 07:42] LABS: EOS % 4.6 % (0-4.5); HEMOGLOBIN 13.8 GM/dL (11.7-16.9); LYMPH % 41.1 % (8-40); MCH 27.7 pg (25.7-33.7); MCHC 32.9 g/dl (32.0-35.9); MEAN PLT VOLUME 11.3 fl (7.5-11.1); MONO % 8.2 % (3.8-10.2); NEUT % 45.1 % (42.8-82.8); PLATELET COUNT 184 K/MM3 (134-434); RDW 13.6 % (11.9-15.9); WHITE BLOOD COUNT 4.8 K/mm3 (4.0-10.0)
[2018-04-10 08:09] LABS: CHLORIDE 107 mmol/L (98-107); POTASSIUM 3.6 mmol/L (3.5-5.1); SODIUM 142 mmol/L (136-145)
[2018-04-10 08:23] LABS: ALK PHOS 72 U/L (45-117); ANION GAP 8 (8-16); BILIRUBIN,TOTAL 0.3 mg/dL (0.2-1.0); BLOOD UREA NITROGEN 17 mg/dL (7-18); CALCIUM 8.1 mg/dL (8.5-10.1); CO2 27 mmol/L (21-32); CREATININE 1.1 mg/dL (0.7-1.3); GLUCOSE,RANDOM 88 mg/dL (74-106); PHOSPHOROUS 3.4 mg/dL (2.5-4.9); SGOT/AST 32 U/L (15-37); SGPT/ALT 32 U/L (12-78); TOT PROT 6.6 g/dl (6.4-8.2)
[2018-04-10] MEDS ORDERED: amLODIPine BESYLATE 10 MG TABLET (FP) PO SCH (10:00)
[2018-04-10] MEDS: cloNIDine HCL 0.1 MG TABLET PO SCH (10:22)
[2018-04-10] MEDS: FOLIC ACID 1 MG TABLET (FP) PO SCH (10:22)
[2018-04-10] MEDS: CYANOCOBALAMIN 1,000 MCG TABLET (FP) PO SCH (10:22)
[2018-04-10] MEDS: METOPROLOL TARTRATE 50 MG TABLET (FP) PO SCH (10:23)
[2018-04-10] MEDS: THIAMINE HCL 100 MG TABLET (FP) PO SCH (10:24)
--- NOTE | 2018-04-10 12:10 | PN ---
Progress Note, Physician History of Present Illness: The patient is a 57 year old male, with a significant past medical history of HTN (noncompliant with medication) and anemia, who presents to the emergency department with, s/p 2 episodes of syncope while standing with associated chest pain. The patient reports associated chest pain with his second episode of syncope. He reports associated shortness of breath associated with both episodes of syncope. As per patient, he has not been feeling well for the past 4 days. He reports consuming alcohol the past two days after a friend advised him to. He denies consuming alcohol today. The patient reports to be noncompliant with his HTN medication because he believes it makes him feel lightheaded. He denies any recent fevers, chills, or headache. He denies any recent nausea, vomit, diarrhea or constipation. He denies any recent dysuria, frequency, urgency or hematuria. - Current Medication List Current Medications: Active Medications Amlodipine Besylate (Norvasc -) 10 mg PO DAILY [facility] Last Admin: 04/10/18 10:22 Dose: 10 mg Clonidine (Catapres -) 0.1 mg PO BID [facility] Last Admin: 04/10/18 10:22 Dose: 0.1 mg Cyanocobalamin (Vitamin B12 -) 1,000 mcg PO DAILY [facility] Last Admin: 04/10/18 10:22 Dose: 1,000 mcg Folic Acid (Folic Acid -) 1 mg PO DAILY [facility] Last Admin: 04/10/18 10:22 Dose: 1 mg Heparin Sodium (Porcine) (Heparin -) 5,000 unit SQ TID [facility] Last Admin: 04/10/18 06:32 Dose: 5,000 unit Hydromorphone HCl (Dilaudid -) 4 mg PO BID [facility] Last Admin: 04/10/18 10:22 Dose: 4 mg Metoprolol Tartrate (Lopressor -) 50 mg PO BID [facility] Last Admin: 04/10/18 10:23 Dose: 50 mg Oxycodone HCl (Roxicodone -) 10 mg PO Q8H PRN PRN Reason: PAIN LEVEL 4 - 6 Last Admin: 04/10/18 02:15 Dose: 10 mg Thiamine HCl (Vitamin B1 -) 100 mg PO BID [facility] Last Admin: 04/10/18 10:24 Dose: 100 mg - Objective Vital Signs: Vital Signs Temperature 98.1 F 04/10/18 08:25 Pulse Rate 55 L 04/10/18 08:25 Respiratory Rate 16 04/10/18 08:25 Blood Pressure 142/102 04/10/18 08:25 O2 Sat by Pulse Oximetry (%) 98 04/10/18 08:00 Eyes: Yes: WNL, Conjunctiva Clear, EOM Intact HENT: Yes: WNL, Atraumatic, Normocephalic Neck: Yes: WNL, Supple, Trachea Midline Cardiovascular: Yes: WNL, Regular Rate and Rhythm Respiratory: Yes: WNL, Regular, CTA Bilaterally Gastrointestinal: Yes: WNL, Normal Bowel Sounds Genitourinary: Yes: WNL Musculoskeletal: Yes: WNL Extremities: Yes: WNL Edema: No Integumentary: Yes: WNL Neurological: Yes: WNL, Alert, Oriented ...Motor Strength: WNL Psychiatric: Yes: WNL Labs: CBC, BMP 04/10/18 06:26 04/10/18 06:26 INR, PTT INR 0.91 (0.82-1.09) 04/07/18 21:13 Problem List - Problems (1) Alcohol intoxication Code(s): F10.929 - ALCOHOL USE, UNSPECIFIED WITH INTOXICATION, UNSPECIFIED (2) Chest pain Code(s): R07.9 - CHEST PAIN, UNSPECIFIED (3) Hypertension Code(s): I10 - ESSENTIAL (PRIMARY) HYPERTENSION Qualifiers: Hypertension type: essential hypertension Qualified Code(s): I10 - Essential (primary) hypertension Assessment/Plan syncope r/o mi htn etoh use noncompliance plan bp control amlodipine check lipids watch for DT echo telemetry mibi negative d/c telemetry
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
--- NOTE | 2018-04-10 15:08 | DS ---
Physical Exam: SUBJECTIVE: Patient seen and examined. No new c/o. No palpitations overnight. Had elevated BP that resolved with medication. Wants to go home OBJECTIVE: Vital Signs Period Temp Pulse Resp BP Sys/Infante Pulse Ox Last 24 Hr 98 F-98.1 F 52-65 16-20 138-181/88-115 96-99 Vital Signs Temp 97.6 F 04/10/18 14:13 Pulse 60 04/10/18 14:13 Resp 16 04/10/18 14:13 BP 125/89 04/10/18 14:13 Pulse Ox 98 04/10/18 08:00 PHYSICAL EXAM GENERAL: The patient is awake, alert, and fully oriented, in no acute distress. No tremors. LUNGS: Breath sounds equal, clear to auscultation bilaterally HEART: irregular rate and normal rhythm, S1, S2 without murmur, rub or gallop. ABDOMEN: Soft, nontender, nondistended, normoactive bowel sounds EXTREMITIES: 2+ pulses, warm, well-perfused, no edema. Multiple healed scars lower extremities NEUROLOGICAL: Cranial nerves II through XII grossly intact. Normal speech, gait not observed. PSYCH: Normal mood, normal affect. SKIN: Warm, dry, normal turgor, no rashes or lesions noted LABS Laboratory Results - last 24 hr 04/09/18 04/10/18 04/10/18 20:30 06:26 06:26 WBC 4.8 RBC 5.00 Hgb 13.8 Hct 42.0 MCV 84.0 MCH 27.7 MCHC 32.9 RDW 13.6 Plt Count 184 MPV 11.3 H Neutrophils % 45.1 Lymphocytes % 41.1 H Monocytes % 8.2 Eosinophils % 4.6 H Basophils % 1.0 Nucleated RBC % 0 Sodium 142 Potassium 3.6 Chloride 107 Carbon Dioxide 27 Anion Gap 8 BUN 17 Creatinine 1.1 Creat Clearance w eGFR > 60 Random Glucose 88 Calcium 8.1 L Phosphorus 3.4 Magnesium 2.0 Total Bilirubin 0.3 D AST 32 ALT 32 Alkaline Phosphatase 72 Total Protein 6.6 Albumin 3.0 L Opiates Screen Positive Methadone Screen Negative Barbiturate Screen Negative Phencyclidine Screen Negative Ur Amphetamines Screen Negative MDMA (Ecstasy) Screen Negative Benzodiazepines Screen Negative Cocaine Screen Negative U Marijuana (THC) Screen Negative Ambulatory Orders Clonidine HCl 0.2 mg PO BID 03/05/16 oxyCODONE HCL [Roxicodone -] 10 mg PO Q8H PRN tablet MDD 30 03/27/18 HYDROmorphone [Dilaudid -] 8 mg PO DAILY 04/08/18 Ondansetron HCl [Zofran] 4 mg PO DAILY 04/08/18 Amlodipine Besylate 10 mg PO DAILY #30 tablet 04/10/18 Metoprolol Tartrate [Lopressor] 50 mg PO BID #60 tablet 04/10/18 carotid doppler- -ve -EKG Sinus rhythm with PVCs, prolonged QTc 467 ECHO 04/08/18: Normal LVEF, moderate concentric LVH. E/A reversal consistent but not diagnostic of poor LV compliance. LV wall motion normal. Trace MR, Mild ND, Mild TR,RV systolic pressure 40-50 Nuclear stress test (Lexiscan) 04/09/18:Normal lexiscan stress EKG, Normal myocardial perfusion. LV cavity is enlarged. LVEF 42%. HOSPITAL COURSE: Date of Admission:04/07/18 Date of Discharge: 04/10/18 57 year old male with a hx of HTN and anemia who presented with multiple episodes of syncope and chest pain #Syncopal Episodes: Pt had up to 8 syncopal episodes within the last 2 weeks, with PVCs seen on EKG and PVCs on tele. Cardiology was consulted. ECHO, stress test done, see above. He will follow up as an outpatient with cardiology for possible catheterization. #HTN Pt continued on his home 0.2mg clonidine bid, lopressor 50mg bid and then we added amlodipine 10mg because his DBP ran high up to the 100s. #Chest pain: Pt was investigated for ACS and it was negative for the work up, EKG- showed PVCs, there were elevated creatinine kinase, which resolved with fluids, but normal trops. #Chronic pain Pt was on chronic opioids. We confirmed he follows a pain mx clinic in [facility], so we continued dilaudid 8mg ER -filled in [place] on ) and oxycodone 10mg Q8H #Hypernatremia: He had an initial hypernatremia that was likely dehydration related and resolved with hydration. #PAULO: Pt was noted to have creatinine 1.7 on admission that improved to 1.1 on discharge following hydration #Alcohol Use: -Pt had blood alcohol level above 200 and said his last drink was after the syncope yesterday. He showed no withdrawal symptoms and PRN ativan was stopped. He will follow with his PCP, Pain mx doctor and senior instructor as an outpatient Minutes to complete discharge: 45 Discharge Summary Reason For Visit: CHEST PAIN Current Active Problems Alcohol intoxication (Acute) Chest pain (Acute) Syncope (Acute) Condition: Stable - Instructions Diet, Activity, Other Instructions: You came in after periods of chest pain and blacking out We ran tests, including checking heart enzymes, ECHO and nuclear stress test that showed you did not have a heart attack Your blood pressure was high We made some adjustments to your blood pressure medication We increased the dose of your metoprolol from 25mg twice a day to 5omg twice a day We added amlodipine 10mg daily Continue your clonidine at 0.2mg twice daily Take your blood pressure measurement daily and record measurements Bring the records with you to see your primary care doctor and senior instructor Notify your doctor if SBP (upper BP) persistently > 140 or < 100 or any dizziness or new concerns. Continue your pain medications as prior. You may continue and follow up with your pain management as an outpatient Do not drive, operate heavy machinery or take important decisions alone while on these medications and do not take if dizzy, drowsy or sleepy. Advise alcohol cessation. Follow up with your senior instructor as an outpatient in one week Follow up with your primary care doctor, Or Dr Mariama Feng at [address] [place] [address], [place] Call [phone] to make appointment for afternoon with Dr Feng in a week's time If you feel your symptoms are getting worse with worsening shortness of breath or chest pain, please return to the emergency room Referrals: Mariama Feng I, SARAH [Resident] - 1 Week Jaime Domingo MD [Staff Physician] - 1 Week Oscar Izaguirre MD [Staff Physician] - 1 Week Disposition: HOME - Home Medications Comprehensive Discharge Medication List: Ambulatory Orders Clonidine HCl 0.2 mg PO BID 03/05/16 oxyCODONE HCL [Roxicodone -] 10 mg PO Q8H PRN tablet MDD 30 03/27/18 HYDROmorphone [Dilaudid -] 8 mg PO DAILY 04/08/18 Ondansetron HCl [Zofran] 4 mg PO DAILY 05/23/18 Amlodipine Besylate 10 mg PO DAILY #30 tablet 04/10/18 Metoprolol Tartrate [Lopressor] 50 mg PO BID #60 tablet 04/10/18 This patient is new to me today: No Emergency Visit: Yes ED Registration Date: 04/07/18 Care time: The patient presented to the Emergency Department on the above date and was hospitalized for further evaluation of their emergent condition. Critical Care patient: No - Discharge Referral Referred to [facility] No
[2018-04-10 15:14] VITALS: BP 125/89; PULSE 60; TEMP 97.6
== END 2018-04-10 17:00 | disposition home or self-care (01) ==
LOC: JER 19:16 → JERBED 22:34 → J4W 04-08 21:54
PROVIDERS: ADMIT Internal Medicine; ATTEND Hospitalist
PROC: 3E033GC Introduction of Other Therapeutic Substance into Peripheral Vein, Percutaneous Approach (ICD-10-PCS; principal; 2018-04-07)
PROC: 3E0337Z Introduction of Electrolytic and Water Balance Substance into Peripheral Vein, Percutaneous Approach (ICD-10-PCS; 2018-04-07)
DX: R07.9 Chest pain, unspecified (principal); R55 Syncope and collapse; F10.129 Alcohol abuse with intoxication, unspecified; I10 Essential (primary) hypertension; D64.9 Anemia, unspecified; E87.0 Hyperosmolality and hypernatremia; N17.9 Acute kidney failure, unspecified; G89.29 Other chronic pain; M62.82 Rhabdomyolysis; Z91.14 Patient's other noncompliance with medication regimen; Z79.891 Long term (current) use of opiate analgesic; Z88.8 Allergy status to other drugs, medicaments and biological substances
CPT/HCPCS: 36415; 70450-TC; 71046-TC-FY; 78452-TC; 80048; 80053; 80061; 80307; 81003; 81015; 82550; 82553; 82570; 83721; 83735; 83880; 84100; 84300; 84484; 85025; 85027; 85610; 86850; 86900; 86901; 87081; 93005; 93010; 93017; 93306-TC; 93880-TC; 99284-25; A9502; G0378; J0735; J1644; J2785; J7030